=== PATIENT | male | born 1990 | race Caucasian/White ===

== ENCOUNTER 2018-09-28 11:45 | Emergency (ER) | payer SELFPAY ==
[~2018-09-28] VITALS: Ht 177.8 cm; Wt 102.3 kg
[~2018-09-28 11:45] MED LIST: NORCO 325 MG-51 TAB PO; PAXIL10 MG PO
[2018-09-28 11:48] VITALS: BP 148/79; PULSE 98; TEMP 98
[2018-09-28] MEDS ORDERED: WELLBUTRIN XL150 MG PO (12:18)
[2018-09-28] MEDS ORDERED: TEGRETOL 1100 MG/TAB PO (12:18)
== END 2018-09-28 12:52 | disposition home or self-care (01) ==
LOC: COL.ER 11:45
DX: F31.9 Bipolar disorder, unspecified (principal); F17.210 Nicotine dependence, cigarettes, uncomplicated